=== PATIENT | female | born 1990 | race Caucasian/White ===

== ENCOUNTER 2018-12-11 17:55 | Emergency (ER) | payer BC, OTHER | END 2018-12-11 21:45 | disposition home or self-care (01) | LOC: FTE 17:55 | DX: S61.211A Laceration without foreign body of left index finger without damage to nail, initial encounter (principal); W26.0XXA Contact with knife, initial encounter; Y92.000 Kitchen of unspecified non-institutional (private) residence as the place of occurrence of the external cause | CPT/HCPCS: 12001; 99282-25 ==

== ENCOUNTER 2018-12-20 17:39 | Emergency (ER) | payer BC | END 2018-12-20 18:14 | disposition home or self-care (01) | LOC: FTE 17:39 | DX: Z48.02 Encounter for removal of sutures (principal) | CPT/HCPCS: 99281 ==